=== PATIENT | female | born 1955 | race Caucasian/White ===

== ENCOUNTER 2024-11-11 14:55 | Emergency (ER) | payer MEDICARE, SELFPAY ==
[2024-11-11 14:58] VITALS: BP 137/99; PULSE 75; RESP 20; TEMP 36.7; O2SAT 98
--- OUTSIDE RECORDS SUMMARY | 2024-11-11 14:59 | XMS_ITS ---
Author Organization [facility] Address [address] [facility] [address] [place] [address] Care Team Providers Care Datawarehouse Developer Name Role Phone Benito Dent Unavailable [phone] Migration, Provider Unavailable Unavailable REASON FOR VISIT EMR-Henrry Encounters Encounter Location Date Provider Diagnosis [facility] [address] [place], [place] [id number] 07/18/2024 Prov ider Migration Plan Of Treatment No Information Progress Notes * CARI AESON ADOB: [birth year] (69 yo F)Acc No.[id number]:07/18/2024 Patient: Gio HEALYYAYACARI :1955 A ge:69 Y S ex:Female Address:[address], [place], [address] Subjective: * Chief Complaints: * E MR-Henrry * * Date:
--- OUTSIDE RECORDS SUMMARY | 2024-11-11 14:59 | XMS_ITS ---
Author Organization [facility] Address [address] [facility] [address] [place] [address] Care Team Providers Care Sales And Marketing Manager Name Role Phone Keshiahaicarlo Benito Unavailable [phone] Migration, Provider Unavailable Unavailable Allergies Allergen (clinical [...] Active Encounters Encounter Location Date Provider Diagnosis [facility] [place] [address] [facility] [place] [phone] 07/19/2024 Prov ider Migration Plan Of Treatment No Information Progress Notes * CARI EASON ADOB: [birth year] (69 yo F)Acc No.[id number]:07/19/2024 Patient: CARI ISIDRO :1955 A ge:69 Y S ex:Female Address:[facility] [address], [place] [address] Subjective: * Chief Complaints: * E MR-Henrry * Medical History: Problems: Atrophic vaginitis Dyspareunia Endometriosis (clinical) Hemorrhoids Hypothyroidism Irritable bowel syndrome Uterine fibroid polyp * Auto Hiker History: M igrated GynHistory M igrated GYNHistory:: Date of Last Colonoscopy: 04/22/2012 Modified Date:10/02/2023,Date of Last Mammogram: 11/20/2022 Modified Date:10/02/2023 . * Surgical History: Appendectomy Breast biopsy Laparoscopy x2 Laparotomy Plantar fasciectomy (559338495) Procedure on foot (958107420) Right salpingo-oophorectomy (149347362) Tonsillectomy Total hysterectomy * Family History: F [...]
--- OUTSIDE RECORDS SUMMARY | 2024-11-11 15:00 | XMS_ITS | Patient Health Record ---
Author Organization [facility] Address [address] [facility] [address] [place] [address] Care Team Providers Care Casting Director Name Role Phone MckennacarloBenito Unavailable [phone] Migration, Provider Unavailable Unavailable Reason For Referral No Information Medications Medication SIG (Take, Route, Frequency, Duration) Notes Start Date End Date Status ALPRAZolam 1 MG Tablet Oral 10/02/2023 Active Nadolol 20 MG Tablet Oral 10/02/2023 Active Estradiol 10 MCG Tablet Vaginal 10/02/2023 Active ProAir RespiClick 108 (90 Base) MCG/ACT Aerosol Powder Breath Activated Inhalation 10/02/2023 Acti ve Yuvafem 10 mcg Tablet Vaginal 10/02/2023 Active Problems Problem Type SNOMED Code ICD Code Onset Dates Problem Status W/U Status Risk Notes Problem Noninflammatory disorder of the vagina (13128392) Other specified noninflammatory disorders of vagina (N89.8) 10/02/19 24 Active confirmed Problem Postmenopausal atrophic vaginitis (23551378) Postmenopausal atrophic vaginitis (N95.2) 10/02/19 24 Active confirmed Problem Encntr for fitness consultant exam (general) (routine) w/o abn findings (Z01.419) 10/02/19 24 Active confirmed Encounters Encounter Location Date Provider Diagnosis [facility] [address] [place] [id number] 07/18/2024 Prov ider Migration [facility] [address] [place] [id number] 07/19/2024 Prov ider Migration Plan Of Treatment No Information Medical (General) History Surgical History Surgery Date(Month/Year) Appendectomy Breast biopsy Laparoscopy x2 Laparotomy Plantar fasciectomy (010010692) Procedure on foot (036340095) Right salpingo-oophorectomy (843359820) Tonsillectomy Total hysterectomy
--- OUTSIDE RECORDS SUMMARY | 2024-11-11 15:00 | XMS_ITS | Encounter Summary ---
Author Organization [facility] Address [address] [place] [address] Phone Care Team Providers Care Medieval English Literature Professor Name Role Phone Julio Katz MD Primary Care Provider [phone] Reason for Visit * Reason Comments Medication Refill Encounter Details Date Type Department Care Team (Late st Contact Info) Description 09/12/2020 Refill [facility] - Internal Medicine - [place] [address] [place] [address] Julio Katz MD [address] [facility] [address] Medication Refill Social History Tobacco Use Types Packs/Day Years Used Date Smoking Tobacco: Former Cigarettes Q uit: 04/07/2010 Smokeless Tobacco: Never Alcohol Use Standard Drinks/Week Comments Yes 0 (1 standard drink = 0.6 oz pur e alcohol) rarely PHQ-2 Answer Date Recorded Total Score - Questions 1-9 0 05/23 Comments No Sex and Gender Information Value Date Recorded Sex Assigned at Not on file Legal Sex Female 12:32 AM CDT Gender Identity Not on file Sexual Orientation Not on file documented as of this encounter Miscellaneous Notes * Telephone Encounter - Marium Covington RN - 09/12/2020 11:21 AM CDT Please review and sign. documented in this encounter Plan of Treatment Not on file documented as of this encounter Visit Diagnoses Not on filedocumented in this encounter Additional Health Concerns Infection Onset Date Last Indicated Resolved Time COVID - 19 10/17/2021 10/17/2021 10/27/2021 12:1 6 AM CDT Assessment Noted Time PHQ-9 Depression Total Score: 0 06/10/19 21 11:00 AM PUBLIC TRANSPORTATION INSPECTOR documented as of this encounter Care Teams Medieval English Literature Professor Relationship Specialty Start Date End Date Julio Katz MD [address] [place] [address] PCP - General Internal Medicine 04/07/17 documented as of this encounter
--- OUTSIDE RECORDS SUMMARY | 2024-11-11 15:00 | XMS_ITS | Referral Summary ---
Author Organization [facility] Address [address] [place] [address] Care Team Providers Care Carriage Dogger Name Role Phone Julio Katz MD Primary Care Provider [phone] Encounters Date Type Department Care Team Description 11/02/2024 8:00 AM CDT Office Visit [facility] Ophthalmology [address] [facility] 2[address] [place] [address] DoRoni tidwell, OD Left posterior capsular opacification (Primary Dx); Pseudophakia of both eyes from Last 3 Months Allergies Active Allergy Reactions Criticality Noted Date Comments Acetaminophen Adhesive Tape-Silicones Rash Medium 04/07/2017 Amitriptyline Other (See comments) 10/20/2015 DROWSINESS Aspirin Other (See comments) 11/02/2024 Cefaclor Hives Reaction: Hives, E.E.S. Anaphylaxis High 11/25/2023 Gatifloxacin Other (See comments) 11/02/2024 Hydrocodone Hydrocodone-Acetaminop hen Hallucinations Medium 04/07/2017 Levofloxacin Other (See comments) 04/07/2017 Severe constipation Loracarbef Hives Medium 04/07/2017 Nitrofurantoin Macrocrystal Other (See comments) 11/02/2024 JOINT PAIN, DIZZY Other Other (See comments) 07/11/2010 YEAST Penicillins Other (See comments) Reaction: Unknown, Tetracycline Other (See comments) Reaction: Unknown, Tramadol Anaphylaxis High Vancomycin Other (See comments) Reaction: Unknown, Medications ALPRAZolam (XANAX) 1 mg tablet take 1 tablet by ORAL route 4 times every day prn 0 0 6 Active Additional Information Patient taking differently:1 mg,Pt taking once a daily, Reported on 11/02/2024 levothyroxine sodium (TIROSINT) 25 mcg capsule take 1 capsule by oral route every day 0 0 6 Active Additional Information Patient not taking.Reported on 11/02/2024 nadolol (CORGARD) 20 mg tablet take 1 tablet by oral route every day 0 0 6 Active Additional Information Patient taking differently:20 mg,Pt is taking 0.5mg, Reported on 11/02/2024 CHERATUSSIN AC 10-100 mg/5 mL liquid 7 Active azithromycin (ZITHROMAX) 250 mg tablet 7 Active fluticasone (FLONASE) 50 mcg/actuation nasal spray Administer 1 spray into each nostril daily. Active fluorouracil (EFUDEX) 5 % creamIndication s:Actinic keratosis Apply to lesions nightly x 3 days, may titrate to twice daily on days 4-14 if needed. 40 g 3 9 Active Additional Information Patient not taking.Reported on 11/25/2023 albuterol HFA (PROVENTIL HFA,VENTOLIN HFA,PROAIR HFA) 90 mcg/actuation inhaler Inhale 2 puffs every 6 (six) hours as needed 2 Active montelukast (SINGULAIR) 10 mg tablet Take 1 tablet (10 mg total) by mouth daily 2 Active ondansetron (ZOFRAN) 4 mg tablet Take 1 tablet (4 mg total) by mouth every 8 (eight) hours as needed 3 Active traZODone (DESYREL) 50 mg tablet Take 1 tablet (50 mg total) by mouth nightly at bedtime Active Active Problems Problem Noted Date Diagnosed Date Left posterior capsular opacification 11/02/2024 Assessment & Plan (11/02/2024 9:12 AM CDT): Mild PCO OS. Not enough to warrant yag cap. Srx for night time driving. F/u annually. Pseudophakia of both eyes 11/25/2023 Assessment & Plan (11/02/2024 9:12 AM CDT): [employer] OU in 2019. Assessment & Plan (11/25/2023 4:02 PM CDT): MF IOL both eyes (OU), clear capsules. Observe. Dry eye syndrome of both eyes 11/25/2023 Assessment & Plan (11/25/2023 4:03 PM CDT): Advised patient to use Refresh ATs BID both eyes (OU). RTC 1 year for annual exam, sooner if symptoms worsen. Actinic keratosis 02/13/2019 Assessment & Plan (02/13/2019 4:59 PM CDT): Diagnosis discussed. We talked about the fact that this lesion, while considered benign is also considered a precursor to a squamous cell carcinoma and therefore we do like to treat it. We talked about cryotherapy versus imiquimod/Efudex depending on her insurance preferences. The patient would like to proceed with 1 of the creams as she lives in [facility] in this way she can continue to use this as needed when new lesions arise. She knows that she needs to be diligent about sun protection. Follow-up p.r.n. Seborrheic keratosis 02/13/2019 Assessment & Plan (02/13/2019 4:59 PM CDT): Diagnosis discussed, benign reassurance given. Follow-up p.r.n. Hypothyroidism 12/20/2016 Viral upper respiratory tract infection 11/06/19 17 Laryngopharyngeal reflux (LPR) 11/05/2016 Assessment & Plan (04/02/2017 1:34 PM SENIOR MARKETING ASSOCIATE): Ms. Prieto is a 61-year-old female who presents with a 1 month history sore throat and globus sensation. Based on the patient's history and my examination today I suspect her symptoms are likely related to a viral upper respiratory infection and extra esophageal reflux disease. It was recommended patient start ranitidine 150 mg p.o. b.i.d. as well as dietary and lifestyle modification. Patient was provided both verbal and written instructions on lifestyle modification as it pertains to reflux disease. Patient is considering therapy for reflux and will also consider esophagram study if symptoms persist. Dysphagia 11/05/2016 Social History Tobacco Use Types Packs/Day Years Used Date Smoking Tobacco: Former Cigarettes Smokeless Tobacco: Never Tobacco Cessation:Counseling Given: Not Answered Comments Unknown Sex and Gender Information Value Date Recorded Sex Assigned at Not on file Legal Sex Female 2:35 AM SENIOR MARKETING ASSOCIATE Gender Identity Not on file Sexual Orientation Not on file Last Filed Vital Signs Vital Sign Reading Time Taken Comments Blood Pressure 116/68 12/20/2016 1:38 PM CDT Pulse 65 11/05/2016 1:52 PM CDT Temperature - - Respiratory Rate - - Oxygen Saturation - - Inhaled Oxygen Concentration - - Weight 66.7 kg (147 lb) 12/20/2016 1:38 PM CDT Height 154.9 cm (5' 1) 12/20/2016 1:38 PM CDT Body Mass Index 27.78 12/20/2016 1:38 PM CDT Plan of Treatment Not on file Procedures Procedure Name Priority Date/Time Associated Diagnosis Comments COLONOSCOPY IMAGES 07/11/2015 from Last 3 Months or Most Recently Relevant to Health Maintenance Results * COLONOSCOPY IMAGES (07/11/2015) Anatomical Region Laterality Modality Other Narrative 07/11/2015 Ordered by an unspecified provider. us Historical Provider GI PROCEDURE ORDERABLES F inal Result from Last 3 Months or Most Recently Relevant to Health Maintenance Insurance [employer] CHO[employer] MEDICARE PPO [employer] [facility] [employer] Care Teams Carriage Dogger Relationship Specialty Start Date End Date Julio Katz MD [address] [place] [address] PCP - General 10/21/15
--- OUTSIDE RECORDS SUMMARY | 2024-11-11 15:00 | XMS_ITS | Clinical Summary ---
Author Organization [facility] Address [address] [place] [address] Phone Care Team Providers Care Life Insurance Sales Name Role Phone Julio Katz MD Primary Care Provider Allergies Active Allergy Reactions Criticality Noted Date Comments Amitriptyline Other (see Comments) 10/20/2015 DROWSINESS Mancxrsso-Hokfisfqc-Xq eprazole Other (see Comments) 07/11/2010 YEAST Amoxicillin Hives 04/07/2017 Ampicillin Other (see Comments) 04/07/2017 Vaginal itch Amoxicillin-Pot Clavulanate Diarrhea 07/11/2010 Cefaclor Hives 04/07/2017 Erythromycin Base Shortness of Breath 7 Hydrocodone-Acetaminop hen Hallucinations 04/07/2017 Levofloxacin Other (see Comments) 04/07/2017 Severe constipation Loracarbef Hives 04/07/2017 Nitrofurantoin Macrocrystal Other (see Comments) JOINT PAIN, DIZZY Penicillins Anaphylaxis 04/07/2017 Adhesive Tape Rash 04/07/2017 Tetracycline Other (see Comments) 04/07/2017 UTI and vaginal itch Tramadol Shortness of Breath 04/07/2017 Vancomycin Itching 04/07/2017 Medications montelukast (SINGULAIR) 10 MG Tablet Take 1 Tablet by mouth daily. 30 Tablet 2 Active albuterol 108 (90 Base) MCG/ACT Aerosol Solution take 2 Puffs by inhalation every 6 hours as needed for Wheezing or Cough. 18 g 2 Active nadolol (CORGARD) 20 MG Tablet Take 1 Tablet by mouth daily. 90 Tablet 1 3 Active ondansetron (Zofran) 4 MG Tablet Take 1 Tablet by mouth every 8 hours as needed for Nausea - 1st line. 15 Tablet 3 Active ALPRAZolam (XANAX) 1 MG TabletIndicatio ns:Generalized anxiety disorder TAKE 1 TABLET BY MOUTH NIGHTLY NEEDED FOR ANXIETY 30 Tablet 3 Active Active Problems Problem Noted Date Diagnosed Date Essential hypertension, benign 05/26/2021 Primary insomnia 05/15/2021 Elevated TSH 04/11/2017 Shingles 04/08/2017 Mitral valve prolapse 04/08/2017 Colitis 04/07/2017 Generalized anxiety disorder 07/16/2013 Plantar fasciitis 07/11/2010 Complex regional pain syndrome of both lower ext remities 07/11/2010 Resolved Problems Problem Noted Date Diagnosed Date Resolved Date Hypokalemia 04/09/2017 04/11/2017 Rectal bleeding 04/07/2017 04/11/2017 Immunizations Immunization Administration Dates Next Due COVID-19, MRNA, LNP-S, BIVAL ENT , MODERNA, 50 MCG/0.5 ML (12+) 06/20/2022 Covid-19, Mrna, Lnp-s, Pf, 30 Mcg/0.3 Ml Dose (P fizer) 07/14/2020,06/16/2020 TDAP Vaccine 07/11/2023 Zoster Vaccine Recombinant 04/18/2018,12/01/2017 Family History Medical History Relation Name Comments No Known Problems Sister Relation Name Status Comments Brother Father Mother Alive Sister Alive Social History Tobacco Use Types Packs/Day Years Used Date Smoking Tobacco: Former Cigarettes Q uit: 04/07/2010 Smokeless Tobacco: Never Tobacco Cessation:Counseling Given: No Alcohol Use Standard Drinks/Week Comments Yes 0 (1 standard drink = 0.6 oz pur e alcohol) Rarely PHQ-2 Answer Date Recorded Total Score - Questions 1-9 3 07/2021 Sexually Active Control Partners Comments Yes Male Comments No Sex and Gender Information Value Date Recorded Sex Assigned at Not on file Legal Sex Female 12:32 AM CDT Gender Identity Not on file Sexual Orientation Not on file Last Filed Vital Signs Vital Sign Reading Time Taken Comments Blood Pressure 146/86 10/17/2021 1:17 PM CDT Pulse 48 10/17/2021 1:17 PM CDT Temperature 36.6 C (97.9 F) 10/17/2021 1:17 PM CDT Respiratory Rate 14 10/17/2021 1:17 PM CDT Oxygen Saturation 97% 10/17/2021 1:17 PM CDT Inhaled Oxygen Concentration - - Weight 65.8 kg (145 lb) 10/11/2021 2:31 PM CDT Height 154.9 cm (5' 1) 10/11/2021 2:31 PM CDT Body Mass Index 27.4 10/11/2021 2:31 PM CDT Plan of Treatment Health Maintenance Due Date Last Done Comments DEXA Bone Density 1955 Hepatitis C Virus (HCV) Screening 1955 Cologuard 1998 Immunochemical Fecal Occult Blood 1998 Respiratory Syncytial Virus (RSV) Immunization (Adult) (1 - Risk 60-74 years 1-dose series) 2013 Mammogram 05/26/2022 05/26/2021, 01/07/2012 SARS-COV-2 Immunization ( season) 2023 06/20/2022, 06/19/2022, 04/18/2021, Additional history exists Influenza Immunization (#1) 2024 Colonoscopy 07/10/2025 07/11/2015 Colorectal Cancer Screening 07/10/2025 Zoster Immunization Completed 04/18/2018, 8 DTaP/Tdap/Td Immunization Discontinued 07/11/2023 Hepatitis B Immunization Aged Out No longer eligible based on patient's age to complete this topic Human Papillomavirus (HPV) Immunization Aged Out No longer eligible based on patient's age to complete this topic Meningococcal Immunization (ACWY) Aged Out No longer eligible based on patient's age to complete this topic Pneumococcal Immunization (50+ years) Discontinued Rotavirus Immunization Aged Out No lo nger eligible based on patient's age to complete this topic Procedures Procedure Name Priority Date/Time Associated Diagnosis Comments MARICARMEN SCREENING BILATERAL DIGITAL W CAD W IFEANYI Routine 05/26/2021 6:11 PM BRAND SALES CONSULTANT Breast cancer screening by mammogram HM COLONOSCOPY Routine 07/11/2015 from Last 3 Months or Most Recently Relevant to Health Maintenance Results * MARICARMEN SCREENING BILATERAL DIGITAL W CAD W IFEANYI (05/26/2021 6:11 PM BRAND SALES CONSULTANT) Anatomical Region Laterality Modality breast Bilateral Mammography 05/26/2021 5:31 PM BRAND SALES CONSULTANT Narrative 05/31/2021 4:11 PM BRAND SALES CONSULTANT - MARICARMEN SCREENING BILATERAL DIGITAL W CAD W IFEANYI BILATERAL DIGITAL SCREENING MAMMOGRAM 3D/2D WITH CAD WITH MEDIOLATERAL OBLIQUE CRANIOCAUDAL: 05/26/2021 The study was acquired using digital technology and interpreted from soft copy. Current study was also evaluated with ICAD version 7.2. 2D digital mammographic views, as well as 3D digital tomosynthesis were performed in the CC and MLO projections. CLINICAL: Routine screening. Patient has no complaints. Personal history of skin cancer. No family history of breast cancer. COMPARISONS: Comparison is made to exam dated: 01/07/2012 [facility]. BREAST TISSUE:The tissue of both breasts is heterogeneously dense. This may lower the sensitivity of mammography. FINDINGS: No significant masses, calcifications, or other findings are seen in either breast. There has been no significant interval change. IMPRESSION: BI-RAD 1 NEGATIVE There is no mammographic evidence of malignancy. A 1 year screening mammogram is recommended. A letter will be sent to the patient with these results. The patient will be entered into a reminder system with a target due date of 1 year for her next screening exam. Electronically signed by: Margarita white/ravinder:05/31/2021 16:00:44 Ribbon Cleaner(s): RT Lazara(R)(M), [facility] letter sent: Normal Exam Reading location: [facility] BI-RADS: 1 Negative Procedure Note Margarita Putnam MD - 05/31/2021 - MARICARMEN SCREENING BILATERAL DIGITAL W CAD W IFEANYI BILATERAL DIGITAL SCREENING MAMMOGRAM 3D/2D WITH CAD WITH MEDIOLATERAL OBLIQUE CRANIOCAUDAL: 05/26/2021 The study was acquired using digital technology and interpreted from soft copy. Current study was also evaluated with ICAD version 7.2. 2D digital mammographic views, as well as 3D digital tomosynthesis were performed in the CC and MLO projections. CLINICAL: Routine screening. Patient has no complaints. Personal history of skin cancer. No family history of breast cancer. COMPARISONS: Comparison is made to exam dated: 01/07/2012 [facility]. BREAST TISSUE:The tissue of both breasts is heterogeneously dense. This may lower the sensitivity of mammography. FINDINGS: No significant masses, calcifications, or other findings are seen in either breast. There has been no significant interval change. IMPRESSION: BI-RAD 1 NEGATIVE There is no mammographic evidence of malignancy. A 1 year screening mammogram is recommended. A letter will be sent to the patient with these results. The patient will be entered into a reminder system with a target due date of 1 year for her next screening exam. Electronically signed by: Margarita white/ravinder:05/31/2021 16:00:44 Ribbon Cleaner(s): RT Lazara(R)(M), [facility] letter sent: Normal Exam Reading location: [facility] BI-RADS: 1 Negative us Julio Katz MD IMG MAMMO ORDERABLES Final Result * COLONOSCOPY (07/11/2015) us Jason Morris MD PROCEDURE/MINOR SURGICAL ORDER KEYLA Final Result from Last 3 Months or Most Recently Relevant to Health Maintenance Insurance MEDICARE C [employer] Advance Directives * Full Code (Latest Code Status on File) Date Activated Date Inactivated Comments 04/07/2017 5:51 PM 04/11/2017 5:33 PM CPR-Full T reatment: FULL ARREST: Attempt Resuscitation/CPR wit intubation and mechanical ventilation. PRE-ARREST: Use entire range of life support measures to stabilize the patient. Care Teams Life Insurance Sales Relationship Specialty Start Date End Date Julio Katz MD [address] [place] [address] PCP - General Internal Medicine 04/07/17
--- OUTSIDE RECORDS SUMMARY | 2024-11-11 15:00 | XMS_ITS | Clinical Summary ---
Author Organization [facility] Address [address] [place] [address] Care Team Providers Care Process Development Engineer Name Role Phone Julio Katz MD Primary Care Provider [phone]- [phone] Allergies Active Allergy Reactions Criticality Noted Date [...] of the creams as she lives in [facility] in this way she can [...] 11/05/2016 Assessment & Plan (04/02/2017 1:34 PM DRIED YEAST SUPERVISOR): Ms. Prieto is a 61-year-old female who [...] esophagram study if symptoms persist. Dysphagia 11/05/2016 Encounters Date Type Department Care Team Description 11/02/2024 8:00 AM CDT Office Visit [facility] Ophthalmology [address] [place] [address] Roni Epstein, OD Left posterior capsular opacification (Primary Dx); Pseudophakia of both eyes from Last 3 Months Surgical History Surgery Date Site/Laterality Comments HEMORRHOID SURGERY hemorrhoidectomy TOTAL ABDOMINAL HYSTERECTOMY Hysterectomy, total Family History Medical History Relation Name Comments Lung cancer Father Cancer, lung; Cataracts Mother Blindness Neg Hx Glaucoma Neg Hx Macular degeneration Neg Hx Retinal detachment Neg Hx Strabismus Neg Hx Relation Name Status Comments Father Mother Social History Tobacco Use Types Packs/Day Years Used Date Smoking Tobacco: Former Cigarettes Smokeless Tobacco: Never Tobacco Cessation:Counseling Given: Not Answered Comments Unknown Sex and Gender Information Value Date Recorded Sex Assigned at Not on file Legal Sex Female 2:35 AM DRIED YEAST SUPERVISOR Gender Identity Not on file Sexual Orientation Not on file Obstetrics History Last Filed Vital Signs Vital Sign Reading [...] 12/20/2016 1:38 PM CDT Plan of Treatment Health Maintenance Due Date Last Done Comments Depression Screening 1955 Fall Risk Assessment 1955 Hepatitis C Screening 1955 Osteoporosis Screening-Bone Density Scan 1955 Hepatitis B Screening 1971 Pneumococcal vaccine 65+ (1 of 1 - PCV) 2003 Well Visit 65+ 2018 Breast Cancer Screening-Mammogram 05/26/2022 022, 05/26/2021 Covid-19 Vaccine (5 - 2023-2 5 season) 2023 06/19/2022, 04/18/2021, 07/14/2020, Additional history exists Influenza Vaccine (#1) 2024 Colon Cancer Screening-Colonoscopy 07/10/2025 07/11/2015, 07/11/2015 DTaP/Tdap/Td Vaccine (2 - Td or Tdap) 07/10/2033 07/11/2023 Colon Cancer Screening-CT Colonography Discontinued 07/11/2015, 07/11/2015 Colon Cancer Screening-DNA Stool Discontinued 07/11/19 16, 07/11/2015 Colon Cancer Screening-FIT Discontinued 07/11/2015, Colon Cancer Screening-Sigmoidoscopy Discontinued 07/11/2015, 07/11/2015 Zoster Vaccine Completed 04/18/2018, 11/20, 11/29/2014, Additional history exists Procedures Procedure Name Priority Date/Time Associated Diagnosis [...] Health Maintenance Insurance [employer] CHOICE MEDICARE PPO [facility] [employer] Care Teams Process Development Engineer Relationship Specialty Start Date End Date Julio Katz MD [address] [place] [address] PCP - General 10/21/15
--- OUTSIDE RECORDS SUMMARY | 2024-11-11 15:00 | XMS_ITS | Encounter Summary ---
Author Organization [facility] Address [address] [place] [address] Phone Care Team Providers Care Legal Secretary Name Role Phone Julio Katz MD Primary Care Provider [phone]- [phone] Reason for Visit * Reason Comments Medication Refill Encounter Details Date Type Department Care Team (Late st Contact Info) Description 03/06/2023 Refill [facility] - Internal Medicine - [place] [address] [place] [address] Julio Katz MD [address] [facility] [facility] [place] [address] Medication Refill Social History Tobacco [...] encounter Miscellaneous Notes * Telephone Encounter - Ellen Garcia, RN - 03/06/2023 1:37 PM CST Medication failed the protocol, provider to review and approve the medication order if appropriate. Requested Prescriptions Pending Prescriptions Disp Refills ALPRAZolam (XANAX) 1 MG Tablet [Pharmacy Med Name: ALPRAZolam 1 MG Oral Tablet] 90 Tablet 0 Sig: Take 1 Tablet by mouth nightly as needed for Anxiety. Not Delegated - Benzodiazepines Protocol Failed - 03/06/2023 11:42 AM Failed - This refill cannot be delegated Passed - Visit with relevant provider in past 12 months or upcoming 90 days Recent Visits Date Type Provider Dept 08/23/22 Telemedicine Julio Katz MD [facility] 05/09/22 Telemedicine Julio Katz MD [facility] Showing recent visits within past 365 days and meeting all other requirements Future Appointments No visits were found meeting these conditions. Showing future appointments within next 90 days and meeting all other requirements RUCTIONAL INTERVENTIONIST documented in this encounter Plan of Treatment Not on file documented as of this encounter Visit Diagnoses Diagnosis Generalized anxiety disorder documented in this encounter Additional Health Concerns Assessment Noted Time PHQ-9 Depression Total Score: 3 05/26/19 22 2:00 PM INSTRUCTIONAL INTERVENTIONIST documented as of this encounter Care Teams Legal Secretary Relationship Specialty Start Date End Date Julio Katz MD [address] [place] [address] PCP - General Internal Medicine 04/07/17 documented as of this encounter
--- OUTSIDE RECORDS SUMMARY | 2024-11-11 15:00 | XMS_ITS ---
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 :1955 A ge:68 Y S ex:Female Date:10/02/2023 Address:[facility] [place] [address] Objective: * Vitals: H t: 61.00 in, Wt: 145.00 lbs, BMI: 27.4 Index, BP: 134/86 mm Hg, Wt-k.77 kg, Ht-cm: 154.94 cm. Vision Examination: Assessment: * Assessment: 1. O ther specified noninflammatory disorders of vagina - N89.8 2 . P ostmenopausal atrophic vaginitis - N95.2 3 . E ncntr for diploma pharmacy technician exam (general) (routine) w/o abn findings - [...] * Electronic signature of Eulogio Dent on 11/11/2024 at 03:00 PM CDT Sign off status: Pending * Provider: Anita Dent M.D. Date: 10/02/2023 Generated for Yesenia ng/Faalysiag/eTransmitting on: 11/11/2024 03:00 PM CDT
[2024-11-11 15:40] LABS: EDCOVIDSCREEN Negative (Negative); EDINFLUASCREEN Negative (Negative); EDINFLUBSCREEN Negative (Negative); EDSTREPNEGPOS1 Negative (Negative)
--- NOTE | 2024-11-11 15:43 | ED.URI ---
HPI - URI/Sore Throat General Chief Complaint: Upper Respiratory Infection Stated Complaint: Sore Throat/Fever Time Seen by Provider: 11/11/24 15:44 Source: patient and RN notes reviewed Mode of arrival: ambulatory Limitations: no limitations History of Present Illness HPI Narrative: 69-year-old female presented for complaint of sore throat, nasal congestion and drainage for 2 weeks. Endorses loose stools for 3 days. Takes allergy medicine but says it is not helping. Denies cough, sob, wheezing, n/v/f/c MD elicited complaint: cough Related Data Home Medications ?Medication ?Instructions ?Recorded ?Confirmed ?Last Taken ?Type albuterol sulfate 90 mcg/actuation inhalation 11/11/24 Unknown History aerosol inhaler alprazolam 1 mg tablet mg 11/11/24 Unknown History nadolol 20 mg tablet mg 11/11/24 Unknown History trazodone 50 mg tablet mg 11/11/24 Unknown History Allergies Allergy/AdvReac Type Severity Reaction Status Date / Time tramadol (From Ultram) Allergy Severe Anaphylaxis Verified 11/11/24 15:32 acetaminophen (From Vicodin) Allergy Intermediate Hallucinati Verified 11/11/24 15:32 ng adhesive tape Allergy Intermediate irritation Verified 11/11/24 15:32 amoxicillin (From Amoxil) Allergy Intermediate uti Verified 11/11/24 15:32 ampicillin Allergy Intermediate uti Verified 11/11/24 15:32 cefaclor (From Ceclor) Allergy Intermediate Hives Verified 11/11/24 15:32 hydrocodone (From Vicodin) Allergy Intermediate Hallucinati Verified 11/11/24 15:32 ng levofloxacin (From Levaquin) Allergy Intermediate severe Verified 11/11/24 15:32 constipation loracarbef (From Lorabid) Allergy Intermediate Hives Verified 11/11/24 15:32 Penicillins Allergy Intermediate uti Verified 11/11/24 15:32 tetracycline Allergy Intermediate uti Verified 11/11/24 15:32 vancomycin Allergy Intermediate uti Verified 11/11/24 15:32 ees Allergy Intermediate breathing Uncoded 11/11/24 15:32 problems most pain meds AdvReac Intermediate gi upset Uncoded 11/11/24 15:32 Review of Systems Review of Systems: CONSTITUTIONAL: Denies malaise, body aches, chills, sweats, fever EYES: Denies visual changes, redness, or discharge ENT: Reports rhinorrhea, congestion, sinus pain, Otalgia, sore throat CARDIOVASCULAR: Denies chest pain, palpitations, edema RESPIRATORY: Reports post nasal drainage. Denies dyspnea GASTROINTESTINAL: Denies abdominal pain, nausea, vomiting, diarrhea SKIN: Denies rash or itching NEUROLOGIC: Denies headache Exam Narrative: GENERAL: well-appearing, nontoxic no acute distress. EYES: conjunctivae clear ENT: Mucous membranes moist. nasal congestion. Left TM pearly mccloud with dull light reflex;Right TM erythematous, bulging and intact; canal not erythematous, no drainage no tragal tenderness. Oropharynx erythematous without lesions or exudate, no drooling, no hoarseness, no trismus, uvula midline. No tripod positioning, muffled voice, soft palate or pharyngeal wall bulging NECK: Supple. No lymphadenopathy CHEST: Clear to auscultation, breath sounds equal. No wheezing, rhonchi, rales, or stridor. No respiratory distress, speaks in full sentences. HEART: Regular rate and rhythm. No murmur heard. SKIN: Warm, dry, no rash. NEURO: Alert and oriented x3. PSYCH: Normal mood and affect Course Course Emergency Course: Patient is aware of diagnosis, understands and agrees to treatment plan. Anticipatory guidance given. Patient agrees to follow-up as directed and is aware of reasons to seek care at the emergency department. Portions of this record may have been created with voice recognition software Level of Care: Express Care Visit Vital Signs Vital signs: Vital Signs Temperature 98.1 F 11/11/24 14:58 Pulse Rate 75 11/11/24 14:58 Respiratory Rate 11/11/24 14:58 Blood Pressure 137/99 H 11/11/24 14:58 Pulse Oximetry 98 11/11/24 14:58 Oxygen Delivery Room Air 11/11/24 14:58 Temperature 98.1 F 11/11/24 14:58 Pulse Rate 75 11/11/24 14:58 Respiratory Rate 20 11/11/24 14:58 Blood Pressure 137/99 H 11/11/24 14:58 Pulse Oximetry 98 11/11/24 14:58 Oxygen Delivery Room Air 11/11/24 14:58 reviewed MDM - URI/Sore Throat MDM Narrative Medical decision making narrative: Discussed physical exam findings, right AOM, sinusitis. Negative flu, COVID, and strep. Advised supportive measures and signs/symptoms to go to the ER. Pt is appropriate for outpt treatment and f/u. Patient states she thinks she has bad vaginal reactions when she takes Augmentin. Differential Diagnosis Differential diagnosis: Likely upper respiratory infection, sinusitis and viral infection Lab Data Labs: Lab Results 11/11/24 Range/Units 15:38 POC Influenza A Ag Negative (Negative) POC Influenza B Ag Negative (Negative) POC SARS CoV-2 Ag Negative (Negative) POC Grp A Strep Screen Negative (Negative) Discharge Plan Discharge Clinical Impression: Otitis media Qualifiers: Otitis media type: unspecified Chronicity: acute Qualified Code(s): H66.90 - Otitis media, unspecified, unspecified ear Sinusitis Qualifiers: Sinusitis location: unspecified location Chronicity: acute Recurrence: non-recurrent Qualified Code(s): J01.90 - Acute sinusitis, unspecified Patient Disposition: Home Condition: Stable Instructions: Antibiotic Form, Ear Infection (ED), Rhinosinusitis (ED) Additional Instructions: Take antibiotics as directed. Recommend antihistamine such as Zyrtec or Luba for sinus congestion Flonase nasal spray, 1 spray in each nostril once daily until symptoms improve Tylenol every 8 hours as needed to reduce fever, pain Please schedule a follow-up visit with your personal physician If your symptoms persist, change or worsen significantly, go to the emergency department for further evaluation. Patient Language: Eritrean Prescriptions: New cefdinir 300 mg capsule 300 mg PO Q12H 7 Days Qty: 14 0RF No Action trazodone 50 mg tablet alprazolam 1 mg tablet nadolol 20 mg tablet albuterol sulfate 90 mcg/actuation HFA aerosol inhaler INHALATION Follow-up/Referrals: PHYSICIAN NOT ON STAFF,NONSTAFF [Primary Care Provider] - Time of Disposition: 15:56
== END 2024-11-11 16:02 | disposition home or self-care (01) ==
PROVIDERS: Emergency Provider Nurse Practitioner Family
DX: H66.91 Otitis media, unspecified, right ear (principal); J01.90 Acute sinusitis, unspecified; Z20.822 Contact with and (suspected) exposure to COVID-19
CPT/HCPCS: 87081; 87426; 87804; 87880; 99203; G0463

== ENCOUNTER 2025-02-22 15:15 | Emergency (ER) | payer MEDICARE, SELFPAY ==
--- OUTSIDE RECORDS SUMMARY | 2023-10-02 03:00 | XMS_ITS ---
Author Organization Medical [facility] Address [address] [place] [address] Care Team Providers Care Water And Gas Helper Name Role Phone Benito Dent [phone] Migration, Provider Unavailable Unavailable REASON FOR VISIT TelEnc Encounters Encounter Location Date Provider Diagnosis [facility] [id number] [place] [address] [place] [address] 10/02/2023 Provider Migration Plan Of Treatment No Information Progress Notes * CARI EASON ADOB: [birth year] (69 yo F)Acc No.[id number]:10/02/2023 Patient: Gio LOUIECARI :1955 A ge:68 Y S ex:Female Address:[address], [place], [address] Subjective: * Chief Complaints: * T elEnc * * Date:
--- OUTSIDE RECORDS SUMMARY | 2023-10-02 09:00 | XMS_ITS ---
Author Organization [facility] Address [address] [place] [address] Care Team Providers Care General Surgery Physician Assistant Name Role Phone Benito Dent Unavailable [phone] Results Component Value Reference Range Notes UNKNOWN Reviewed date:10/02/2023 12:00:00 AM Interpretation: Performing Lab: Notes/Report: MARIELA GLABRATA NOT DETECTED MARIELA SPECIES NOT DETECTED CHLAMYDIA TRACHOMATIS RNA, TMA, UROGENITAL NOT DETECTE D NEISSERIA GONORRHOEAE RNA, TMA, UROGENITAL NOT DETECTE D SURESWAB(R) ADV BACTERIAL VAGINOSIS (BV), TMA NEGATIVE TRICHOMONAS VAGINALIS (TV), TMA NOT DETECTED Vital Signs Blood pressure systolic 134 mm Hg 10/02/19 24 Blood pressure diastolic 86 mm Hg 024 Height 61.00 in 10/02/2023 Weight 145.00 lbs 10/02/2023 BMI 27.4 kg/m2 10/02/2023 Height-cm 154.94 cm 10/02/2023 Weight-kg 65.77 kg 10/02/2023 Encounters Encounter Location Date Provider Diagnosis [facility] [address] [facility] [address] [place] [address] 10/02/2023 Benito Dent Other specified noninflammatory disorders of vagina N89.8 ; Postmenopausal atrophic vaginitis N95.2 and Encntr for booky exam (general) (routine) w/o abn findings Z01.419 Assessments Encounter Date Diagnosis (ICD Code) Assessment Notes Treatment Notes Treatment Clinical Notes Section Notes 10/02/2023 Other specified noninflammatory disorders of vagina (ICD-10 - N89.8) 10/02/2023 Postmenopausal atrophic vaginitis (ICD-10 - N95.2) 10/02/2023 Encntr for booky exam (general) (routine) w/o abn findings (ICD-10 - Z01.419) Plan Of Treatment No Information Progress Notes * CARI EASON ADOB: [birth year] (69 yo F)Acc No.[id number]:10/02/2023 Progress Notes Patient: CARI ISIDRO A Provider: Anita Dent M.D. :1955 A ge:68 Y S ex:Female Date:10/02/2023 Address:[facility] [place] [address] Objective: * Vitals: H t: 61.00 in, Wt: 145.00 lbs, BMI: 27.4 Index, BP: 134/86 mm Hg, Wt-k.77 kg, Ht-cm: 154.94 cm. Vision Examination: Assessment: * Assessment: 1. O ther specified noninflammatory disorders of vagina - N89.8 2 . P ostmenopausal atrophic vaginitis - N95.2 3 . E ncntr for booky exam (general) (routine) w/o abn findings - Z01.419 Plan: * Labs: * L ab: UNKNOWN Value Reference Range C ANDIDA GLABRATA NOT DETECTED * C ANDIDA SPECIES NOT DETECTED * C HLAMYDIA TRACHOMATIS RNA, TMA, UROGENITAL NOT DETECTED * N EISSERIA GONORRHOEAE RNA, TMA, UROGENITAL NOT DETECTED * S URESWAB(R) ADV BACTERIAL VAGINOSIS (BV), TMA NEGATIVE * T RICHOMONAS VAGINALIS (TV), TMA NOT DETECTED Care Plan Details* * Electronic signature of Eulogio Dent on 02/22/2025 at 03:34 PM PROCESSING ANALYST Sign off status: Pending * Provider: Anita Dent M.D. Date: 0 10/02/2023 Generated for Yesenia andrews/Radha/eTransmitting on: 04/24/2024 03:34 PM PROCESSING ANALYST
--- OUTSIDE RECORDS SUMMARY | 2024-07-18 03:00 | XMS_ITS ---
Author Organization Medical [facility] Address [address] [place] [address] Care Team Providers Care Funeral Sales Manager Name Role Phone Benito Dent Unavailable [phone] Migration, Provider Unavailable Unavailable REASON FOR VISIT EMR-Henrry Encounters Encounter Location Date Provider Diagnosis [facility] [address] [place], [place] [id number] 07/18/2024 Prov ider Migration Plan Of Treatment No Information Progress Notes * CARI EASON ADOB: [birth year] (69 yo F)Acc No.[id number]:07/18/2024 Patient: Gio HEALYYAYACARI :1955 A ge:69 Y S ex:Female Address:[address], [place], [address] Subjective: * Chief Complaints: * E MR-Henrry * * Date:
--- OUTSIDE RECORDS SUMMARY | 2024-07-19 03:00 | XMS_ITS ---
Author Organization [facility] Address [address] [place] [address] Care Team Providers Care Laborer Demolition Name Role Phone Mckennacalro Benito Unavailable [phone] Migration, Provider Unavailable Unavailable Allergies Allergen (clinical drug ingredient) Drug/Non Drug Allergy documented on EMR Reaction Allergy Type Onset Date Status ampicillin Ampicillin Unknown Drug Allergy 10/02/2023 Acti ve erythromycin Erythromycin Unknown Drug Allergy 10/02/2023 Active gatifloxacin Gatifloxacin Unknown Drug Allergy 10/02/2023 Active Levaquin Unknown Drug Allergy 10/02/2023 Active tramadol Ultram Unknown Drug Allergy 10/02/2023 Active Vicodin Unknown Drug Allergy 10/02/2023 Active Adhesive Unknown Allergy 10/02/2023 Active cefaclor Cefaclor Unknown Drug Allergy 10/02/2023 Active loracarbef Loracarbef Unknown Drug Allergy 10/02/2023 Acti ve Substance with penicillin structure and antibacterial mechanism of action (substance) Penicillins Unknown Drug Allergy 10/02/2023 Active tetracycline Tetracycline Unknown Drug Allergy 10/02/2023 Active vancomycin Vancomycin Unknown Drug Allergy 10/02/2023 Acti ve REASON FOR VISIT EMR-Henrry Medications Medication SIG (Take, Route, Frequency, Duration) Notes Start Date End Date Status ALPRAZolam 1 MG Tablet Oral 10/02/2023 Active Nadolol 20 MG Tablet Oral 10/02/2023 Active Estradiol 10 MCG Tablet Vaginal 10/02/2023 Active ProAir RespiClick 108 (90 Base) MCG/ACT Aerosol Powder Breath Activated Inhalation 10/02/2023 Acti ve Yuvafem 10 mcg Tablet Vaginal 10/02/2023 Active Encounters Encounter Location Date Provider Diagnosis [facility] [place] [address] [facility] [place] [id number] 07/19/2024 Prov ider Migration Plan Of Treatment No Information Progress Notes * CARI EASON ADOB: [birth year] (69 yo F)Acc No.[id number]:07/19/2024 Patient: CARI ISIDRO :1955 A ge:69 Y S ex:Female Address:[facility] [address], [place] [address] Subjective: * Chief Complaints: * E MR-Henrry * Medical History: Problems: Atrophic vaginitis Dyspareunia Endometriosis (clinical) Hemorrhoids Hypothyroidism Irritable bowel syndrome Uterine fibroid polyp * Permanent Mold Supervisor History: M igrated GynHistory M igrated GYNHistory:: Date of Last Colonoscopy: 04/22/2012 Modified Date:10/02/2023,Date of Last Mammogram: 11/20/2022 Modified Date:10/02/2023 . * Surgical History: Appendectomy Breast biopsy Laparoscopy x2 Laparotomy Plantar fasciectomy (437127549) Procedure on foot (184893606) Right salpingo-oophorectomy (282889644) Tonsillectomy Total hysterectomy * Family History: F ather: History of hypertension . M aternal Grandfather: History of hypertension . M aternal Grandmother: Malignant tumor of colon . B anitra: History of hypertension . * Medications: T akingALPRAZolam 1 MG Tablet Oral Estradiol 10 MCG Tablet Vaginal Nadolol 20 MG Tablet Oral ProAir RespiClick 108 (90 Base) MCG/ACT Aerosol Powder Breath Activated Inhalation Yuvafem 10 mcg Tablet Vaginal Taking ALPRAZolam 1 MG Tablet Oral Taking Estradiol 10 MCG Tablet Vaginal Taking Nadolol 20 MG Tablet Oral Taking ProAir RespiClick 108 (90 Base) MCG/ACT Aerosol Powder Breath Activated Inhalation Taking Yuvafem 10 mcg Tablet Vaginal * Allergies: A dhesive: Allergy - Onset Date 10/02/2023mpicillin: Allergy - Onset Date 10/02/2023efaclor : Allergy - Onset Date 10/02/2023Erythromycin: Allergy - Onset Date 10/02/2023Gatifloxacin: Allergy - Onset Date 10/02/2023Levaquin: Allergy - Onset Date 10/02/2023Loracarbef: Allergy - Onset Date 10/02/2023enicillins: Allergy - Onset Date 10/02/2023Tetracycline: Allergy - Onset Date 10/02/2023Ultram: Allergy - Onset Date 10/02/2023Vancomycin: Allergy - Onset Date 10/02/2023Vicodin: Allergy - Onset Date 10/02/2023 * * Date:
--- NOTE | 2025-02-22 15:17 | ED.WOUNDLAC ---
HPI - Wound/Laceration General Chief Complaint: Skin/Abscess/Foreign Body Stated Complaint: L middle finger cut Time Seen by Provider: 02/22/25 15:28 Source: patient, RN notes reviewed and old records reviewed Mode of arrival: ambulatory Limitations: no limitations History of Present Illness HPI narrative: 69-year-old female presents to the [facility] requesting to have skin trimmed from around the left middle fingernail. Patient states that she had an injury on the 11 of February, approximately 11 days ago. Patient states that she was using a drill when it slipped and hit her finger. With had trimmed some skin away. Concerned that it is not healing appropriately mild amount of swelling noted, no erythema or ecchymosis. Patient has been pouring peroxide on the wound Related Data Home Medications ?Medication ?Instructions ?Recorded ?Confirmed ?Last Taken ?Type albuterol sulfate 90 mcg/actuation inhalation 11/11/24 Unknown History aerosol inhaler alprazolam 1 mg tablet mg 11/11/24 Unknown History nadolol 20 mg tablet mg 11/11/24 Unknown History trazodone 50 mg tablet mg 11/11/24 Unknown History Allergies Allergy/AdvReac Type Severity Reaction Status Date / Time tramadol (From Ultram) Allergy Severe Anaphylaxis Verified 02/22/25 15:28 acetaminophen (From Vicodin) Allergy Intermediate Hallucinati Verified 02/22/25 15:28 ng adhesive tape Allergy Intermediate irritation Verified 02/22/25 15:28 amoxicillin (From Amoxil) Allergy Intermediate uti Verified 02/22/25 15:28 ampicillin Allergy Intermediate uti Verified 02/22/25 15:28 cefaclor (From Ceclor) Allergy Intermediate Hives Verified 02/22/25 15:28 hydrocodone (From Vicodin) Allergy Intermediate Hallucinati Verified 02/22/25 15:28 ng levofloxacin (From Levaquin) Allergy Intermediate severe Verified 02/22/25 15:28 constipation loracarbef (From Lorabid) Allergy Intermediate Hives Verified 02/22/25 15:28 Penicillins Allergy Intermediate uti Verified 02/22/25 15:28 tetracycline Allergy Intermediate uti Verified 02/22/25 15:28 vancomycin Allergy Intermediate uti Verified 02/22/25 15:28 ees Allergy Intermediate breathing Uncoded 11/11/24 15:32 problems most pain meds AdvReac Intermediate gi upset Uncoded 07/23/25 15:32 Review of Systems Review of Systems: All systems reviewed & are unremarkable except as noted in HPI and below Constitutional: Constitutional: Reports no additional constitutional complaints ENT: Reports system reviewed and no additional complaints, except as documented Cardiovascular: Cardiovascular: Reports no additional cardiovascular complaints, Denies chest pain and Denies dyspnea Respiratory: Respiratory: Reports no additional respiratory complaints, Denies chest congestion, Denies cough and Denies dyspnea Musculoskeletal: Musculoskeletal: Reports no additional musculoskeletal complaints Integumentary/Breasts: Skin/Breast: Reports as per HPI PMFSH Comments At the time of my signature, I reviewed and agree with the nursing past medical, surgical, social, and family history. There is no relevant family history pertinent to the patient complaint. Exam Const: General: cooperative, healthy appearing, comfortable, no acute distress, well developed, alert and well nourished Nutritional Appearance: well nourished Orientation/consciousness: patient oriented x3 Limitations: no limitations HENMT: Head: normal to inspection Eyes: General: appearance normal, both eyes and all related structures Alignment and Position: alignment normal Neck: Neck: normal visual inspection, full ROM, no lymphadenopathy and no meningeal signs Chest: Chest palpation & inspection: normal inspection of the chest Resp: Effort & Inspection: normal respiratory effort and able to speak in complete sentences Cardio: Rate: regular rate Skin: General skin exam: normal color and no rashes or lesions noted Other: Left middle finger healing wound Neuro: General: patient oriented x3, gait normal, moves all extremities and no meningeal signs Cognition (Neuro): normal cognition Speech: normal speech Gait exam (Neuro): Normal gait present Extrem: General: normal to inspection, full ROM, capillary refill normal and normal gait Psych: Appearance: grossly normal and well kempt Mental Status: mental status grossly normal Speech and movement: Normal speech and movement present and Clear speech present Affect: normal affect Attitude: cooperative Course Course Level of Care: Express Care Visit Vital Signs Vital signs: Vital Signs Temperature 98.2 F 02/22/25 15:22 Pulse Rate 66 02/22/25 15:22 Respiratory Rate 20 02/22/25 15:22 Blood Pressure 140/81 02/22/25 15:22 Pulse Oximetry 98 02/22/25 15:22 Oxygen Delivery Room Air 02/22/25 15:22 Temperature 98.2 F 02/22/25 15:22 Pulse Rate 66 02/22/25 15:22 Respiratory Rate 20 02/22/25 15:22 Blood Pressure 140/81 02/22/25 15:22 Pulse Oximetry 98 02/22/25 15:22 Oxygen Delivery Room Air 02/22/25 15:22 Reviewed MDM - Wound/Laceration MDM Narrative Medical decision making narrative: Patient sitting in exam room. Patient is nontoxic, vitals stable. Patient is requesting we trimmed skin that is around the left middle finger nail. Her probably had a partial avulsion of skin on the side of the nail middle finger left hand. States that she trimmed the skin back already. Still having skin growing over the nail. Skin is adhered. No signs of infection. No drainage. Area is swollen and tender Discussed if treatment with warm soapy water, soaking in Epson salts. Stop using peroxide. Patient is appropriate for outpatient treatment with close follow-up Discharge instructions reviewed with patient, as well as provided in writing per nursing staff. The instructions also include specific and strict return/GO TO THE ER as well as f/u information. All questions have been answered, and the patient deny any further questions with discharge and discharge plan. Some parts of this dictation were generated by voice recognition software and may contain typographical and/or grammatical inaccuracies. Differential Diagnosis Differential diagnosis: Likely laceration, abrasion and avulsion of skin Critical Care Time Critical Care Time Critical Care Time: No Discharge Plan Discharge Clinical Impression: Wound, open, finger Patient Disposition: Home Condition: Stable Instructions: Antibiotic Form, Skin Avulsion (ED) Additional Instructions: keep area clean and dry. Soak twice a day in warm soapy water with Epson salt. Apply a scant amount of bacitracin. Do not use peroxide please try leaving it open to air minimum of 4-5 hours every day. Your wanting this area to dry out. Keeping it covered can increase the chance of infection. Follow-up with primary care provider. Today your blood pressure was 140/81 Patient Language: Czech Prescriptions: No Action trazodone 50 mg tablet alprazolam 1 mg tablet nadolol 20 mg tablet albuterol sulfate 90 mcg/actuation HFA aerosol inhaler INHALATION Follow-up/Referrals: UNKNOWN,DOCTOR [Primary Care Provider] Time of Disposition: 15:40
[2025-02-22 15:22] VITALS: BP 140/81; PULSE 66; RESP 20; TEMP 36.8; O2SAT 98
--- OUTSIDE RECORDS SUMMARY | 2025-02-22 15:34 | XMS_ITS | Encounter Summary ---
Author Organization [facility] Address [address] [place] [address] Phone Care Team Providers Care Sailmaker Name Role Phone Julio Katz MD Primary Care Provider [phone] Reason for Visit * Reason Comments Medication Refill Encounter Details Date Type Department Care Team (Late st Contact Info) Description 03/06/2023 Refill [facility] - Internal [facility] - [place] [address] [facility] [facility] [place] [address] Julio Katz MD [address] [place] [address] Medication Refill Social History Tobacco Use Types Packs/Day Years Used Date Smoking Tobacco: Former Cigarettes 0.5 Q uit: 04/07/2010 Smokeless Tobacco: Never Alcohol [...] Miscellaneous Notes * Telephone Encounter - Ellen Garcia RN - 03/06/2023 1:37 PM CST Medication [...] Dept 08/23/22 Telemedicine Julio Katz MD [facility] 05/09/22 Telemedicine Julio Katz MD [facility] Showing recent visits within past 365 days and meeting all other requirements Future Appointments No visits were found meeting these conditions. Showing future appointments within next 90 days and meeting all other requirements CULTURAL TECHNICIAN documented in this encounter Plan of Treatment Not on file documented as of this encounter Visit Diagnoses Diagnosis Generalized anxiety disorder documented in this encounter Additional Health Concerns Assessment Noted Time PHQ-9 Depression Total Score: 3 05/26/19 22 2:00 PM AGRICULTURAL TECHNICIAN documented as of this encounter Care Teams Sailmaker Relationship Specialty Start Date End Date Julio Katz MD PCP - General Internal Medicine 04/07/17 documented as of this encounter
--- OUTSIDE RECORDS SUMMARY | 2025-02-22 15:34 | XMS_ITS | Clinical Summary ---
Author Organization [facility] Address [address] [place] [address] Care Team Providers Care Pumping Supervisor Name Role Phone Julio Katz MD Primary Care Provider [phone] Allergies Active Allergy Reactions Criticality Noted Date [...] of the creams as she lives in [facility] in this way she can [...] 11/05/2016 Assessment & Plan (04/02/2017 1:34 PM BIOMEDICAL ENGINEERING TECHNOLOGIST): Ms. Prieto is a 61-year-old female who [...] esophagram study if symptoms persist. Dysphagia 11/05/2016 Surgical History Surgery Date Site/Laterality Comments HEMORRHOID [...] on file Legal Sex Female 2:35 AM BIOMEDICAL ENGINEERING TECHNOLOGIST Gender Identity Not on file Sexual Orientation [...] Cancer Screening-Mammogram 05/26/2022 022, 05/26/2021 Covid-19 Vaccine (2024-2 6 season) 2024 06/19/2022, 04/18/2021, 07/14/2020, Additional history exists Influenza [...] Maintenance Insurance [employer] PPO [employer] [facility] Care Teams Pumping Supervisor Relationship Specialty Start Date End Date Julio Katz MD [address] [place] [address] [facility] - General 10/21/15
--- OUTSIDE RECORDS SUMMARY | 2025-02-22 15:34 | XMS_ITS | Patient Health Record ---
Author Organization [facility] Address [address] [place], [place] [address] Care Team Providers Care Hammersmith Helper Name Role Phone MckennaBenito matos Unavailable [phone] Migration, Provider Unavailable Unavailable Reason For Referral [...] Notes Problem Noninflammatory disorder of the vagina (35455199) Other specified noninflammatory disorders of vagina (N89.8) 10/02/19 24 Active confirmed Problem Postmenopausal atrophic vaginitis (21992442) Postmenopausal atrophic vaginitis (N95.2) 10/02/19 24 Active confirmed Problem Gynecological examination normal (250415116001096) Encntr for rn urology exam (general) (routine) w/o abn findings (Z01.419) 10/02/19 24 Active confirmed Encounters Encounter Location Date Provider Diagnosis [facility] [address] [place], [place] [id number] 07/18/2024 Prov ider Migration [facility] [address] [place], [place] [id number] 07/19/2024 Prov ider Migration Plan Of Treatment No Information Medical (General) History Surgical History Surgery Date(Month/Year) Appendectomy Breast biopsy Laparoscopy x2 Laparotomy Plantar fasciectomy (576422248) Procedure on foot (294852510) Right salpingo-oophorectomy (230906256) Tonsillectomy Total hysterectomy
--- OUTSIDE RECORDS SUMMARY | 2025-02-22 15:34 | XMS_ITS | Clinical Summary ---
Author Organization [facility] Address [address] [place] [address] Phone Care Team Providers Care Books Salesperson Name Role Phone Julio Katz MD Primary Care Provider Allergies Active Allergy Reactions Criticality Noted Date Comments Amitriptyline Other (see Comments) 10/20/2015 DROWSINESS Zeyimryut-Ibhuyttej-Xp eprazole Other (see Comments) 07/11/2010 YEAST Amoxicillin [...] 0.5 Q uit: 04/07/2010 Smokeless Tobacco: Never Tobacco [...] - Risk 60-74 years 1-dose series) 2013 Medicare Initial AWV [id number] 02/19/2018 Mammogram 05/26/2022 05/26/2021, 01/07/2012 Influenza Immunization (#1) 2024 SARS-COV-2 Immunization ( season) 2024 06/20/2022, 06/19/2022, 04/18/2021, Additional history exists Colonoscopy 07/10/2025 07/11/2015 Colorectal Cancer Screening 07/10/2025 [...] CAD W IFEANYI Routine 05/26/2021 6:11 PM IN FLIGHT CREW MEMBER Breast cancer screening by mammogram HM COLONOSCOPY Routine 07/11/2015 from Last 3 Months or Most Recently Relevant to Health Maintenance Results * MARICARMEN SCREENING BILATERAL DIGITAL W CAD W IFEANYI (05/26/2021 6:11 PM IN [employer]BER) Anatomical Region Laterality Modality breast Bilateral Mammography 05/26/2021 5:31 PM IN FL[employer] CREW MEMBER Narrative 05/31/2021 4:11 PM IN FLIGHT CREW MEMBER - MARICARMEN SCREENING BILATERAL DIGITAL W CAD [...] Comparison is made to exam dated: 01/07/2012 [facility]. BREAST TISSUE:The tissue of both breasts is [...] exam. Electronically signed by: Margarita white/ravinder:05/31/2021 16:00:44 Concrete Rubber(s): RT Lazara(R)(M), [facility] letter sent: Normal Exam Reading location: [facility] BI-RADS: 1 Negative Procedure Note Margarita [...] Comparison is made to exam dated: 01/07/2012 [facility]. BREAST TISSUE:The tissue of both breasts is [...] exam. Electronically signed by: Margarita white/ravinder:05/31/2021 16:00:44 Concrete Rubber(s): RT Lazara(R)(M), [facility] letter sent: Normal Exam Reading location: [facility] BI-RADS: 1 Negative us Julio Katz [...] measures to stabilize the patient. Care Teams Books Salesperson Relationship Specialty Start Date End Date Julio Katz MD PCP - General Internal Medicine 04/07/17
--- OUTSIDE RECORDS SUMMARY | 2025-02-22 15:35 | XMS_ITS | Encounter Summary ---
Author Organization [facility] Address [address] [place] [address] Phone Care Team Providers Care Chemical Laboratory Scientist Name Role Phone Julio Katz MD Primary Care Provider [phone] Reason for Visit * Reason Comments Medication Refill Encounter Details Date Type Department Care Team (Late st Contact Info) Description 09/12/2020 Refill [facility] - Internal Medicine - [place] [address] [facility] [place] [address] Julio Katz MD [address] [place] [address] Medication Refill Social History Tobacco Use Types Packs/Day Years Used Date Smoking Tobacco: Former Cigarettes 0 Q uit: 04/07/2010 Smokeless Tobacco: Never Alcohol [...] Total Score: 0 06/10/19 21 11:00 AM CENTERPUNCHER documented as of this encounter Care Teams Chemical Laboratory Scientist Relationship Specialty Start Date End Date Julio Katz MD PCP - General Internal Medicine 04/07/17 documented as of this encounter
== END 2025-02-22 15:47 | disposition home or self-care (01) ==
PROVIDERS: Emergency Provider Nurse Practitioner
DX: S61.213A Laceration without foreign body of left middle finger without damage to nail, initial encounter (principal); W27.8XXA Contact with other nonpowered hand tool, initial encounter
CPT/HCPCS: 99211; G0463